=== PATIENT | male | born 2005 | race Caucasian/White ===

== ENCOUNTER 2024-01-31 11:00 | Outpatient (RCR) | payer OTHER, SELFPAY | END 2024-03-24 14:26 | disposition home or self-care (01) | LOC: HO.PT 11:00 | PROVIDERS: PCP Nurse Practitioner Family; Visit Provider Nurse Practitioner Family | DX: M25.561 Pain in right knee (principal) | CPT/HCPCS: 97110; 97161; 97530 ==

== ENCOUNTER 2024-10-30 10:30 | Emergency (ER) | payer OTHER, SELFPAY ==
[2024-10-30] VITALS (10 sets, daily range): BP systolic 124–153; BP diastolic 66–86; PULSE 60–105; RESP 14–18; TEMP 36.2–36.9; O2SAT 96–100; BMI 49.3; BMI 22.1
--- NOTE | ~2024-10-30 | CT_ITS ---
EXAMINATION: CT ABDOMEN AND PELVIS WITH CONTRAST CLINICAL INFORMATION: Right lower quadrant abdominal pain. COMPARISON: None available. TECHNIQUE: Multidetector volumetric images were obtained from the superior aspect of the liver through the pubic symphysis following administration 85 mL of Omnipaque 350 intravenous contrast. Sagittal and coronal reformatted images were obtained on the technologist's workstation. Oral contrast: No This CT examination was performed using dose optimization techniques as appropriate, variously including the following: *Automated exposure control *Adjustment of mA and/or kV according to patient size (this includes techniques or standardized protocols for targeted exams where dose is matched to indication/reason for exam; i.e. extremities or head) *Use of iterative reconstruction technique. DLP: 439 mGy centimeter. FINDINGS: LUNG BASES: No acute airspace disease. LIVER, GALLBLADDER, AND BILIARY TREE: Liver is normal in size morphology and enhancement pattern. No focal lesion. No pericholecystic fluid collection or gallbladder wall thickening. No intrahepatic or extrahepatic biliary ductal dilatation. PANCREAS: No focal lesion. No main pancreatic ductal dilatation. No peripancreatic fluid collection. SPLEEN: Normal size. No focal lesion. ADRENAL GLANDS: No nodular lesion. KIDNEYS AND URETERS: No hydronephrosis. No nephrolithiasis. No gross renal mass. Normal enhancement pattern of the renal parenchyma. BLADDER: Fluid-filled. GASTROINTESTINAL TRACT: The appendix tip measures 11 mm in maximum diameter with mild periappendiceal edema pattern. There is mucosal thickening. Few prominent the lymph nodes in the mesocecum. Abundant stool, large intestine. No intestinal obstruction pattern. No pneumoperitoneum. No pneumatosis intestinalis. Terminal ileum appears normal. ABDOMINAL WALL: No gross umbilical hernia. LYMPH NODES: Prominent lymph nodes in the mesocecum. VASCULAR: No aneurysm or dissection abdominal aorta. PELVIC VISCERA: Normal size. OSSEOUS STRUCTURES: No acute fracture or listhesis. CT/CT abdomen pelvis w IV con IMPRESSION: Concerning early acute nonruptured appendicitis in the correct clinical settings. Fleischner guidelines were followed. Electronically signed by: Luis Cedeno MD 10/30/2024 03:45 PM EDT
--- NOTE | 2024-10-30 11:20 | ED.ABDPAIN ---
HPI - Abdominal Pain General Chief Complaint: Abdominal Pain Stated Complaint: Abd pain, sent from urgent care Time Seen by Provider: 10/30/24 12:41 Source: patient Mode of arrival: ambulatory Limitations: no limitations History of Present Illness ED Provider: HPI narrative: 19-year-old male presenting abdominal cramping started earlier today, no nausea or vomiting or diarrhea, fairly generalized more so to the lower quadrants no dysuria no hematuria. Never had this before has had no prior surgeries otherwise healthy. Related Data Allergies Allergy/AdvReac Type Severity Reaction Status Date / Time No Known Allergies Allergy Verified 10/30/24 11:21 Review of Systems Constitutional: Reports as per HPI [facility] Social History Social History Advance Directives: No Advance Directives Information Provided: Yes Physical Exam ED Vital Signs: Vital Signs - 24 hr 10/30/24 11:19 10/30/24 14:23 Temperature 98.5 F 97.6 F Pulse Rate 85 60 Respiratory Rate 16 14 Blood Pressure 138/73 128/66 Pulse Oximetry 100 Oxygen Delivery Method Room Air Room Air BMI result Body Mass Index 49.3 Const Other: Gen: ?Overall well-appearing patient HEENT: PERRLA, EOMI, MMM, Neck: Supple, no LAD CV: RRR, no obvious murmurs appreciated Resp: ?No wheezing rales rhonchi no stridor moving air well Abd: ?Bowel sounds are present, suprapubic and right lower quadrant tenderness no rebound no rigidity, deferred MSK: FROM, strength 5/5 all extremities Skin: Warm, dry, intact, Neuro: ?Alert and oriented x3, moving upper and lower extremities symmetrically, no obvious facial asymmetry noted Course Course Course Narrative: This is an RME: Additional HPI, ROS, PE not included below will be deferred to primary provider. RME assessment and note performed by: Rosa Robert PA-C This is a 19-year-old male, with no known medical problems, who presents emergency department with complaints of abdominal pain which started this morning. No fevers, chills, congestion, cough, nausea, vomiting, diarrhea, or urinary symptoms. No history of similar symptoms in the past. Last moved his bowels this morning, reports that it was more firm. No sick contacts. Abdomen is soft, reportedly with diffuse tenderness throughout, no rebound or guarding. Plan: Labs, UA, further ER eval needed Medical Decision Making Medical Decision Making [facility] Narrative: Presenting with abdominal cramping, fairly nonspecific presentation on examination was found to have tenderness in the suprapubic and right lower quadrant, we will obtain imaging to evaluate for appendicitis other considerations listed as below, disposition to be determined 4PM consulting surgery for concern for acute appendicitis, family updated, patient updated. Differential Diagnosis Differential Diagnoses: The differential diagnosis associated with the presentation includes Appendicitis, constipation, cholecystitis, gastritis, diverticulitis, cystitis Admission/Observation Consideration of admission/observation: Escalation of care including admission/observation considered Lab Data [facility] Lab Attestation statement: I reviewed the patient's lab results. 10/30/24 11:44 10/30/24 11:44 Labs: Lab Results 10/30/24 Range/Units 11:44 WBC 12.7 H (4.8-10.8) X10*3/uL RBC 5.07 (4.60-5.80) X10*6/uL Hgb 14.9 (14.0-18.0) g/dl Hct 43.1 (42.0-52.0) % MCV 85.0 (80.0-98.0) fL MCH 29.4 (27.0-33.0) pg MCHC 34.6 (31.0-36.0) g/dl RDW 12.4 (11.0-16.0) % Plt Count 291 (160-400) X10*3/uL MPV 9.4 (9.4-12.4) fL Immature Gran % (Auto) 0.4 (0.0-0.4) % Neut % (Auto) 81.7 H (45-73) % Lymph % (Auto) 10.7 L (20-40) % [place] % (Auto) 6.3 (2-11) % Eos % (Auto) 0.6 (0-4) % Baso % (Auto) 0.3 (0-2) % Lymph # (Auto) 1.4 (1.2-4.9) X10*3/uL [place] # (Auto) 0.8 (0.1-1.2) X10*3/uL Eos # (Auto) 0.1 (0.0-0.4) X10*3/uL Baso # (Auto) 0.0 (0.0-0.2) X10*3/uL Abs Immat Gran (auto) 0.05 H (0.00-0.03) X10*3/uL Absolute Neuts (auto) 10.4 H (2.0-8.3) x10*3/uL Absolute Nucleated RBC 0.000 (0.0-0.012) X10*3/uL Nucleated RBC % (auto) 0.0 (0.0-0.2) /100WBC Sodium 140 (135-145) mmol/L Potassium 4.4 (3.3-5.1) mmol/L Chloride 106 (96-108) mmol/L Carbon Dioxide 28 (22-29) mmol/L Anion Gap 10 L (12-20) BUN 9 (9-16) mg/dL Creatinine 0.87 (0.5-1.4) mg/dL Estim Creat Clear Calc 215.6 Estimated GFR > 60 Random Glucose 96 (60-115) mg/dL Calcium 9.7 (8.4-10.2) mg/dL Magnesium 2.1 (1.6-2.6) mg/dL Total Bilirubin 0.6 (0.0-1.0) mg/dL Direct Bilirubin 0.2 (0.0-0.5) mg/dL AST 23 (5-37) U/L ALT 21 (0-40) U/L Alkaline Phosphatase 87 (39-117) U/L Total Protein 7.2 (6.5-8.0) g/dL Albumin 4.6 (3.5-5.0) g/dL Lipase 17 (8-78) U/L Influenza Type A (PCR) NEGATIVE (Negative) Influenza Type B (PCR) NEGATIVE (Negative) RSV RNA Qual (PCR) NEGATIVE (Negative) SARS-CoV-2 RNA (RT-PCR) NEGATIVE (Negative) Radiology Impression Discussion of test interpretation with radiology: I have reviewed the radiologist's reading. Radiologist Impression: CT/CT abdomen pelvis w IV con IMPRESSION: Concerning early acute nonruptured appendicitis in the correct clinical settings. Medications Administered Discontinued Medications Generic Name Dose Route Start Last Admin Trade Name Freq PRN Reason Stop Dose Admin Iohexol 100 ml 10/30/24 15:11 10/30/24 15:11 Iohexol 350 Mg/Ml 100 Ml Infus..Btl IV 10/30/24 15:12 85 ml ONCE ONE Administration Ketorolac Tromethamine 15 mg 10/30/24 12:43 10/30/24 14:10 Ketorolac Tromethamine 15 Mg/Ml Vial IVPUSH 10/30/24 12:44 15 mg ONCE ONE Administration Discharge Plan Discharge Clinical Impression: Acute appendicitis Patient Disposition: Admitted As Inpatient Print Language: [place]
[2024-10-30 11:58] LABS: MANUAL DIFF FLAG NO
[2024-10-30 12:00] LABS: Basophils Percent Auto 0.3 % (0-2); Eosinophils Absolute Auto 0.1 X10*3/uL (0.0-0.4); Eosinophils Percent Auto 0.6 % (0-4); Hematocrit 43.1 % (42.0-52.0); Hemoglobin 14.9 g/dl (14.0-18.0); Imm Gran Abs Auto 0.05 X10*3/uL (0.00-0.03); Imm Gran Pct Auto 0.4 % (0.0-0.4); Lymphocytes Absolute Auto 1.4 X10*3/uL (1.2-4.9); Lymphocytes Percent Auto 10.7 % (20-40); Mean Corpuscular HGB Conc 34.6 g/dl (31.0-36.0); Mean Corpuscular Hemoglobin 29.4 pg (27.0-33.0); Mean Platelet Volume 9.4 fL (9.4-12.4); Monocytes Absolute Auto 0.8 X10*3/uL (0.1-1.2); Monocytes Percent Auto 6.3 % (2-11); Neutrophils Absolute Auto 10.4 x10*3/uL (2.0-8.3); Neutrophils Percent Auto 81.7 % (45-73); Platelet Count 291 X10*3/uL (160-400); Red Blood Count 5.07 X10*6/uL (4.60-5.80); Red Cell Distribution Width 12.4 % (11.0-16.0); White Blood Count 12.7 X10*3/uL (4.8-10.8)
[2024-10-30 12:20] LABS: Alanine Aminotransferase 21 U/L (0-40); Albumin Level 4.6 g/dL (3.5-5.0); Alkaline Phosphatase 87 U/L (39-117); Anion Gap 10 (12-20); Aspartate Amino Transferase 23 U/L (5-37); Bilirubin Direct 0.2 mg/dL (0.0-0.5); Bilirubin Total 0.6 mg/dL (0.0-1.0); Blood Urea Nitrogen 9 mg/dL (9-16); Calcium 9.7 mg/dL (8.4-10.2); Carbon Dioxide 28 mmol/L (22-29); Chloride 106 mmol/L (96-108); Creatinine Clr Calc Pharmacy 215.6; Estimated Glomerular Filt Rate > 60; Glucose Random 96 mg/dL (60-115); Lipase 17 U/L (8-78); Magnesium 2.1 mg/dL (1.6-2.6); Potassium 4.4 mmol/L (3.3-5.1); Sodium 140 mmol/L (135-145); Total Protein 7.2 g/dL (6.5-8.0)
[2024-10-30 12:37] LABS: Influenza A PCR NEGATIVE (Negative); Influenza B PCR NEGATIVE (Negative); Resp Syncy Virus RNA Qual PCR NEGATIVE (Negative); SARS COV2 PCR INHOUSE NEGATIVE (Negative)
--- OUTSIDE RECORDS SUMMARY | 2024-10-30 13:16 | XMS_ITS | Encounter Summary ---
Author Organization [facility] Address [address] [place] [id number] Phone Care Team Providers Care Irrigation System Installer Name Role Phone Unruly Solares MD Primary Care Provider [phone] Encounter Details Date Type Department Care Team (Late st Contact Info) Description 06/25/2016 Documentation [facility] [place] [facility] [address] [place], [place] [id number] Family Medicine, Physician [address] [place], [place] [phone] Social History Tobacco Use Types Packs/Day Years Used Date Smoking Tobacco: Never Assessed Sex and Gender Information Value Date Recorded Sex Assigned at Male 03/10/2020 9:26 AM EDT Legal Sex Male 5:13 PM EDT Gender Identity Male 03/10/2020 9:26 AM EDT Sexual Orientation Straight 03/10/2020 9: 26 AM EDT documented as of this encounter Plan of Treatment Upcoming Encounters Date Type Department Care Team (Late st Contact Info) Description 11/16/2024 10:30 AM EDT Office Visit [facility] [address] [place] [address] Unruly Solares MD [address] [place] [address] documented as of this encounter Visit Diagnoses Not on filedocumented in this encounter Care Teams Irrigation System Installer Relationship Specialty Start Date End Date Unruly Solares MD [address] [place] [address] PCP - General Pediatrics 09/01/24 documented as of this encounter
[2024-10-30] MEDS: Ketorolac Tromethamine 15 MG/ML VIAL IVPUSH (14:10)
[2024-10-30] MEDS: iohexoL 350 MG/ML 100 ML INFUS..BTL IV (15:11)
[2024-10-30] MEDS: cefTRIAXone sodium 1 GM VIAL IVPUSH (16:47)
[2024-10-30 17:39] LABS: Appearance Urine Clear; Color Urine Yellow; Glucose Urine UA Negative (Negative); Leukocyte Esterase Urine Negative (Negative); Nitrite Urine Negative (Negative); PH 7.5 (5.0-9.0); Specific Gravity - Urine >= 1.030 (1.005-1.025); Urine Blood Negative (Negative); Urine Ketones Negative (Negative); Urine Protein Negative (Neg-Trace)
--- NOTE | 2024-10-30 17:53 | PHA.MEDREC ---
Addendum entered by Jose Vigil [facility] 10/30/24 18:21: med rec checked by [facility] Original Note: Pharmacy Consult ? Medication Reconciliation Pharmacy has completed the medication reconciliation. Patient states he only takes Diclofenac sod 75 mg PRN.
--- NOTE | 2024-10-30 17:59 | HO.ANESPROP2 ---
HPI - Anesthesia Eval Consult details Narrative: Acute appendicitis PMFSH Active Problems Active Problems: All Active Problems Acute appendicitis (Acute) Family History Family history of problems with anesthesia: No Surgical History History of Problems with Anesthesia: No Social History Social History Advance Directives: No Advance Directives Information Provided: Yes Meds Allergies Allergy/AdvReac Type Severity Reaction Status Date / Time No Known Allergies Allergy Verified 10/30/24 11:21 Home Medications ?Medication ?Instructions ?Recorded ?Confirmed ?Last Taken ?Type diclofenac sodium 75 mg 75 mg PO BID PRN Pain 10/30/24 10/30/24 Unknown History tablet,delayed release Exam Height,Weight and Vital Signs: Height 6 ft Weight 165 kg Last Vital Signs Temp 97.3 F 10/30/24 17:39 Pulse 70 10/30/24 17:39 Resp 16 10/30/24 17:39 BP 135/76 10/30/24 17:39 Pulse Ox 100 10/30/24 17:39 O2 Del Method Room Air 10/30/24 14:23 Pertinent Lab Results Pertinent Lab Results: Laboratory Tests 10/30/24 10/30/24 11:44 17:27 WBC 12.7 H RBC 5.07 Hgb 14.9 Hct 43.1 MCV 85.0 MCH 29.4 MCHC 34.6 RDW 12.4 Plt Count 291 MPV 9.4 Immature Gran % (Auto) 0.4 Neut % (Auto) 81.7 H Lymph % (Auto) 10.7 L [place] % (Auto) 6.3 Eos % (Auto) 0.6 Baso % (Auto) 0.3 Lymph # (Auto) 1.4 [place] # (Auto) 0.8 Eos # (Auto) 0.1 Baso # (Auto) 0.0 Abs Immat Gran (auto) 0.05 H Absolute Neuts (auto) 10.4 H Absolute Nucleated RBC 0.000 Nucleated RBC % (auto) 0.0 Sodium 140 Potassium 4.4 Chloride 106 Carbon Dioxide 28 Anion Gap 10 L BUN 9 Creatinine 0.87 Estim Creat Clear Calc 215.6 Estimated GFR > 60 Random Glucose 96 Calcium 9.7 Magnesium 2.1 Total Bilirubin 0.6 Direct Bilirubin 0.2 AST 23 ALT 21 Alkaline Phosphatase 87 Total Protein 7.2 Albumin 4.6 Lipase 17 Urine Color Yellow Urine Appearance Clear Urine pH 7.5 Ur Specific [place] >= 1.030 H Urine Protein Negative Urine Glucose (UA) Negative Urine Ketones Negative Urine Blood Negative Urine Nitrite Negative Ur Leukocyte Esterase Negative Influenza Type A (PCR) NEGATIVE Influenza Type B (PCR) NEGATIVE RSV RNA Qual (PCR) NEGATIVE SARS-CoV-2 RNA (RT-PCR) NEGATIVE Airway Mallampati Class: II TM Dist: >3cm Neck ROM: Full Loose/Missing/Broken Teeth: No Heart: RRR Lungs: CTA Assessment and Plan Assessment Anesthesia Assessment: Anesthesia Plan Discussed and Chart Reviewed Final Anesthetic Review Family History of Problems with Anesthesia: No History of Problems with Anesthesia: No NPO: Yes ASA Class: I and Emergency Final Preanesthetic Review: No Changes in Pt Med Stat, Meds/Allgs Chart Reviewed, Consent Obtained/Reviewed and Anes Risks/Benef Reviewed Patient Risk: Low Procedure Risk: Intermediate Anesthetic Plan Anesthetic Plan: GA Disposition: Standard PACU
--- NOTE | 2024-10-30 18:00 | PM.HPGS ---
History of Present Illness History of Present Illness Date of Service: 10/30/24 Chief complaint: Abd pain, sent from urgent care Narrative: Reese Crandall is a 19 year old male who has had a 16 hour history periumbilical pain that started yesterday and by today and overnight started moving towards the right lower quadrant area. He has never had pain like this before. He comes in now and workup in the ER reveals a slightly elevated white count and the CT scan showing findings consistent with early appendicitis. Patient is generally healthy does not smoke does not drink no drug use. Rest of review of systems are within normal limits Review of Systems Review of Systems: Yes all other systems are reviewed and are negative PMFSH Social History Social History Advance Directives: No Advance Directives Information Provided: Yes Meds Allergies Allergy/AdvReac Type Severity Reaction Status Date / Time No Known Allergies Allergy Verified 10/30/24 11:21 Home Medications ?Medication ?Instructions ?Recorded ?Confirmed ?Last Taken ?Type diclofenac sodium 75 mg 75 mg PO BID PRN Pain 10/30/24 10/30/24 Unknown History tablet,delayed release Physical Exam Vital Signs: Vital Signs: Last Vital Signs Temp 97.3 F 10/30/24 17:39 Pulse 70 10/30/24 17:39 Resp 16 10/30/24 17:39 BP 135/76 10/30/24 17:39 Pulse Ox 100 10/30/24 17:39 O2 Del Method Room Air 10/30/24 14:23 BMI result Body Mass Index 49.3 Const: General: cooperative, healthy appearing, comfortable and no acute distress HEENT: Head: Yes normal to inspection Resp: Effort & Inspection: normal respiratory effort Auscultation: clear to auscultation bilaterally Cardio: Rate: regular rate Rhythm: regular rhythm GI: Other: Abdomen is soft nondistended nontender other than the right lower quadrant where there some mild tenderness guarding no peritoneal signs Results Results Labs: Short CBC 10/30/24 Range/Units 11:44 WBC 12.7 H (4.8-10.8) X10*3/uL Hgb 14.9 (14.0-18.0) g/dl Hct 43.1 (42.0-52.0) % Plt Count 291 (160-400) X10*3/uL BMP 10/30/24 11:44 Sodium 140 Potassium 4.4 Chloride 106 Carbon Dioxide 28 BUN 9 Creatinine 0.87 Calcium 9.7 Liver Function 10/30/24 Range/Units 11:44 Total Bilirubin 0.6 (0.0-1.0) mg/dL Direct Bilirubin 0.2 (0.0-0.5) mg/dL AST 23 (5-37) U/L ALT 21 (0-40) U/L Alkaline Phosphatase 87 (39-117) U/L Albumin 4.6 (3.5-5.0) g/dL Urine 10/30/24 Range/Units 17:27 Urine Color Yellow Urine Appearance Clear Urine pH 7.5 (5.0-9.0) Ur Specific [place] >= 1.030 H (1.005-1.025) Urine Protein Negative (Neg-Trace) mg/dL Urine Glucose (UA) Negative (Negative) mg/dL Abdomen CT scan report/results: report reviewed and image reviewed CT scan - pelvis: report reviewed and image reviewed Additional studies: Patient: Reese Minor MR#: [id number] : 2005 Acct:[id number] Age/Sex: 19 / M ADM Date: 10/30/24 Loc: HO.ED Attending Dr: Ordering Physician: Tre Abrams DO Date of Service: 10/30/24 Procedure(s): CT abdomen pelvis w IV con Accession Number(s): [id number] cc: Physician,Unknown ; Tre Abrams DO~ Report Number: [id number]: Total DLP = 439.00 mGy-cm EXAMINATION: CT ABDOMEN AND PELVIS WITH CONTRAST CLINICAL INFORMATION: Right lower quadrant abdominal pain. COMPARISON: None available. TECHNIQUE: Multidetector volumetric images were obtained from the superior aspect of the liver through the pubic symphysis following administration 85 mL of Omnipaque 350 intravenous contrast. Sagittal and coronal reformatted images were obtained on the technologist's workstation. Oral contrast: No This CT examination was performed using dose optimization techniques as appropriate, variously including the following: *Automated exposure control *Adjustment of mA and/or kV according to patient size (this includes techniques or standardized protocols for targeted exams where dose is matched to indication/reason for exam; i.e. extremities or head) *Use of iterative reconstruction technique. DLP: 439 mGy centimeter. FINDINGS: LUNG BASES: No acute airspace disease. LIVER, GALLBLADDER, AND BILIARY TREE: Liver is normal in size morphology and enhancement pattern. No focal lesion. No pericholecystic fluid collection or gallbladder wall thickening. No intrahepatic or extrahepatic biliary ductal dilatation. PANCREAS: No focal lesion. No main pancreatic ductal dilatation. No peripancreatic fluid collection. SPLEEN: Normal size. No focal lesion. ADRENAL GLANDS: No nodular lesion. KIDNEYS AND URETERS: No hydronephrosis. No nephrolithiasis. No gross renal mass. Normal enhancement pattern of the renal parenchyma. BLADDER: Fluid-filled. GASTROINTESTINAL TRACT: The appendix tip measures 11 mm in maximum diameter with mild periappendiceal edema pattern. There is mucosal thickening. Few prominent the lymph nodes in the mesocecum. Abundant stool, large intestine. No intestinal obstruction pattern. No pneumoperitoneum. No pneumatosis intestinalis. Terminal ileum appears normal. ABDOMINAL WALL: No gross umbilical hernia. LYMPH NODES: Prominent lymph nodes in the mesocecum. VASCULAR: No aneurysm or dissection abdominal aorta. PELVIC VISCERA: Normal size. OSSEOUS STRUCTURES: No acute fracture or listhesis. CT/CT abdomen pelvis w IV con IMPRESSION: Concerning early acute nonruptured appendicitis in the correct clinical settings. Fleischner guidelines were followed. Electronically signed by: Luis Cedeno MD 10/30/2024 03:45 PM EDT Dictated By: Luis Gómez MD Signed By: <Electronically signed by Luis Le MD in OV> 10/30/24 1545 DD/ 1359 TD/TT: 10/30/24 1535 Dashboard Developer: Assessment and Plan (1) Morbid obesity: Status: Inactive (2) Acute appendicitis: Qualifiers: Acute appendicitis type: with localized peritonitis Appendicitis abscess presence: without abscess Appendicitis gangrene presence: without gangrene Appendicitis perforation presence: without perforation Qualified Code(s): K35.30 - Acute appendicitis with localized peritonitis, without perforation or gangrene Status: Acute Plan 19-year-old male with right lower abdominal pain tenderness slightly elevated white count CT scan consistent with findings of early appendicitis. Plan is to admit IV antibiotics carry out laparoscopic appendectomy and most likely be discharged home. Risks and benefits were discussed with the patient including but not limited to bleeding infection bowel injury and despite this he wishes to proceed Quality Stroke Does the patient have a stroke diagnosis?: No VTE Prior VTE?: No VTE Risk Level:: Surgical - low VTE Device Contraindication: Treatment Not Indicated VTE Drug Contraindication: Treatment Not Indicated Procedures Date of Service Date of Service: 10/30/24
--- NOTE | 2024-10-30 19:44 | P.DS_ITS ---
DS: Providers Provider Date of Service: 10/30/24 Date of discharge: 10/30/24 Primary care physician: Unknown Physician Admitting clinician: Terri Bui Attending physician on discharge: Terri Bui DS: Diagnosis Discharge Diagnosis (1) Morbid obesity: Status: Inactive (2) Acute appendicitis: Start date: 10/30/24 Status: Acute DS: Summary Hospital Course Hospital Course: pt underwent lap appy after presenting to the ER with abdo pain and w.u revealed acute appendicitis early no complications or issues will be dc home from pacu Status at Discharge Cognitive/behavioral status at discharge: good Functional status at discharge: independent ambulation Overall status at discharge: patient is progressing back to baseline Time Attestation Total time managing care of this patient today: 20 mintues. Discharge Coordination Time (in mins): 20 min Quality: Safe Use of Opioids Does Pt have an Active Cancer Diagnosis on the Problem List?: No Quality: Stroke Does the patient have a stroke diagnosis?: No Reason for No Anti-thrombotic at DC: Not indicated Reason for No Anticoagulant at DC: Not indicated Reason Not Initiating IV-Tpa: Not indicated Reason for No Anti-thrombotic by Day Two: Not indicated Physical Exam Vital Signs: Vital Signs: Last Vital Signs Temp 97.3 F 10/30/24 17:39 Pulse 70 10/30/24 17:39 Resp 16 10/30/24 17:39 BP 135/76 10/30/24 17:39 Pulse Ox 100 10/30/24 17:39 O2 Del Method Room Air 10/30/24 14:23 BMI result Body Mass Index 22.1 GI: Other: abdominal pain at incisions DS: Data Data Completed and Pending Pending studies at discharge: Pending at discharge 10/30/24 19:23 Surgical [PTH] Routine Labs on day of discharge: Laboratory Results - last 24 hr 10/30/24 10/30/24 11:44 17:27 WBC 12.7 H RBC 5.07 Hgb 14.9 Hct 43.1 MCV 85.0 MCH 29.4 MCHC 34.6 RDW 12.4 Plt Count 291 MPV 9.4 Immature Gran % (Auto) 0.4 Neut % (Auto) 81.7 H Lymph % (Auto) 10.7 L [place] % (Auto) 6.3 Eos % (Auto) 0.6 Baso % (Auto) 0.3 Lymph # (Auto) 1.4 [place] # (Auto) 0.8 Eos # (Auto) 0.1 Baso # (Auto) 0.0 Abs Immat Gran (auto) 0.05 H Absolute Neuts (auto) 10.4 H Absolute Nucleated RBC 0.000 Nucleated RBC % (auto) 0.0 Sodium 140 Potassium 4.4 Chloride 106 Carbon Dioxide 28 Anion Gap 10 L BUN 9 Creatinine 0.87 Estim Creat Clear Calc 215.6 Estimated GFR > 60 Random Glucose 96 Calcium 9.7 Magnesium 2.1 Total Bilirubin 0.6 Direct Bilirubin 0.2 AST 23 ALT 21 Alkaline Phosphatase 87 Total Protein 7.2 Albumin 4.6 Lipase 17 Urine Color Yellow Urine Appearance Clear Urine pH 7.5 Ur Specific [place] >= 1.030 H Urine Protein Negative Urine Glucose (UA) Negative Urine Ketones Negative Urine Blood Negative Urine Nitrite Negative Ur Leukocyte Esterase Negative Influenza Type A (PCR) NEGATIVE Influenza Type B (PCR) NEGATIVE RSV RNA Qual (PCR) NEGATIVE SARS-CoV-2 RNA (RT-PCR) NEGATIVE Imaging CT scan - pelvis: Radiologist's impression: ITS Impressions Abdomen/Pelvis CT 10/30/24 13:59 IMPRESSION: Concerning early acute nonruptured appendicitis in the correct clinical settings. Fleischner guidelines were followed. Electronically signed by: Luis Cedeno MD 10/30/2024 03:45 PM EDT Discharge Plan Discharge Clinical Impression: Acute appendicitis Patient Disposition: Home, Self-Care Prescriptions: New oxycodone 5 mg tablet 5 mg PO Q6H PRN (Reason: pain) Qty: 10 0RF Rx Instructions: Partial Fill upon patient request. No Action diclofenac sodium 75 mg tablet,delayed release (DR/EC) 75 mg PO BID PRN (Reason: Pain) Referrals: Physician,Unknown J [Primary Care Provider] - Interventions: Admission Worksheet (ED) Last Done: 10/30/24 17:56 Print Language: Polish
[2024-10-30] MEDS: Ketorolac Tromethamine 30 MG/ML VIAL IVPUSH (19:52)
[2024-10-30] MEDS: Acetaminophen 1,000 MG/100 ML PIGGYBACK 400 MG IV (19:52)
--- NOTE | 2024-10-30 20:05 | W.PM.OPN ---
Operative Note Operative Note Date of Service: 10/30/24 Narrative: Preop diagnosis--acute appendicitis Postop diagnosis--acute appendicitis Procedure--[facility]aroscopic [facility] Anesthesia--general endotracheal tube anesthesia Patient is a 19-year-old male who comes in overnight history of abdominal pain periumbilical now radiating to the right lower quadrant area mild guarding slightly elevated white count to 12,[address] scan showing findings consistent with early appendicitis Intraop findings--early appendicitis with the short appendix being a little thickened stiff mild inflammatory changes of the tip. Small bowel was run no other intraoperative findings of concern were noted Procedure-- Patient was brought to the operative room under Anesthesia guidance intubated. He had compression stockings placed before induction received preoperative antibiotics his abdomen was prepped and draped in standard surgical fashion. Infraumbilical incision was created after numbing up the area with 0.25% Marcaine lidocaine epinephrine mixture. The abdominal wall fascia was grasped with Darci's and transected 0 Vicryl pursestring suture placed and eventually Gaines trocar introduced and secured. Pneumoperitoneum was established with a 15 mmHg pressure. Two 5 mm ports were then placed under direct visualization using local 1 in the suprapubic area and 1 in the left lower quadrant. The appendix was identified right in the right lower quadrant area on the surface of the small bowel it was grasped with a grasper and using the harmonic the mesentery was taken down at the base. The 45 purple load endoscopic TAY was used to fire across the base of the cecum appendix area. The appendix was pulled into the port and then removed from the infraumbilical port site. Pneumoperitoneum was reestablished in the area examined and it looked fine. The small bowel was then run for several feet just to ensure that there was no Meckel's diverticulum or anything else of concern. The rest of the pelvic structures look fine. At the end of the case all sponge instrument needle counts were correct estimated blood loss was minimal specimens sent was the appendix. The 0 Vicryl pursestring suture was closed and forearm for Polysorb was used to close the skin edges with Steri-Strips and gauze and Tegaderm dressings. The patient was extubated returned stable to recovery
--- NOTE | 2024-10-31 07:58 | MHC.CM.ED ---
Patient d/c'd home before being seen by case management. No services recommended at d/c.
== END 2024-10-30 18:00 | disposition still patient (30) ==
PROVIDERS: Physician Assistant Medical; Surgery; Emergency Provider Emergency Medicine
PROC: 0DTJ4ZZ Resection of Appendix, Percutaneous Endoscopic Approach (ICD-10-PCS; CPT 44970; principal; 2024-10-30 17:45)
DX: K35.30 Acute appendicitis with localized peritonitis, without perforation or gangrene (principal); R10.31 Right lower quadrant pain; E66.01 Morbid (severe) obesity due to excess calories; Z68.42 Body mass index [BMI] 45.0-49.9, adult; Z03.818 Encounter for observation for suspected exposure to other biological agents ruled out
CPT/HCPCS: 44970; 0241U; 74177; 80048; 80076; 81003; 83690; 83735; 85025; 88304; 96374; 99285; J0131; J0665; J0696; J1100; J1885; J2003; J2405; J2704; J3010; Q9967

== ENCOUNTER → 2024-10-30 12:43 | Outpatient (BNV) | payer OTHER, SELFPAY | PROVIDERS: Emergency Provider Emergency Medicine; Visit Provider Radiology Diagnostic Radiology | DX: R10.31 Right lower quadrant pain (principal) | CPT/HCPCS: 74177 ==

== ENCOUNTER → 2024-10-30 12:48 | Outpatient (BNV) | payer OTHER, SELFPAY | PROVIDERS: Emergency Provider Emergency Medicine; Visit Provider Surgery | DX: K35.30 Acute appendicitis with localized peritonitis, without perforation or gangrene (principal); E66.01 Morbid (severe) obesity due to excess calories | CPT/HCPCS: 44970; 99284; 99499 ==

== ENCOUNTER 2024-11-09 11:22 | Outpatient (AMB) | payer OTHER, SELFPAY ==
--- NOTE | 2024-11-09 11:27 | A.OFFVIS_ITS ---
Vital Signs 11/09/24 11:38 Height 6 ft Weight 165 lb 2 oz BMI 22.4 BP 132/80 Blood Pressure Location Lt brachial Position Sitting Pulse 76 Intake Visit Reasons: s/p appendectomy 10/30 Intake Note: Patient is seen in office for post op assessment post laparoscopic appendectomy Pt c/o: denies any concerns surgery:10/30/24 Surgeon--Hao Superintendent Stevedoring Required: No Accompanied by: Self / Same As Patient Allergies No Known Allergies Allergy (Verified 11/09/24 11:38) HPI HPI s/p appendectomy 10/30: Details: Patient doing well, has no concerns. Denies pain, no longer taking pain medications. States he is returning to work today at [employer], he states that there is really any heavy lifting involved and feels comfortable doing this. Appetite and bowel function are at baseline. Denies fever, chills, discharge from incision sites, redness surrounding incision sites [facility] Surgical History (Updated 11/09/24 @ 11:42 by Homer Blair PA-C) History of laparoscopic appendectomy (10/30/24) Social History Patient Tobacco Use Status: Never used Tobacco Review of Systems Const All systems reviewed & are unremarkable except as noted in HPI and below Physical Exam Vital Signs: Last Vital Signs Pulse 76 11/09/24 11:38 BP 132/80 11/09/24 11:38 BMI result Body Mass Index 22.4 Const General: healthy appearing, comfortable and no acute distress Orientation/consciousness: patient oriented x3 Resp Effort & Inspection: normal respiratory effort and able to speak in complete sentences GI Other: Laparoscopic port sites appear intact and clean. No surrounding erythema, nontender. Inspection: No distended Palpation (GI): Soft to palpation, not firm, nontender, no guarding and not rigid Neuro General: patient oriented x3 Assessment & Plan Assessment & Plan (1) S/P laparoscopic appendectomy: Code(s): Z90.49 - Acquired absence of other specified parts of digestive tract Category: Medical Plan 19-year-old male status post laparoscopic appendectomy on 10/30/2024 presenting for routine follow-up. Patient is doing well, no longer experiencing pain. Appetite and bowel function are at baseline. Patient's abdominal exam is soft and benign. Incision sites appear to be healing well no current signs of infection patient will be returning to work today we will maintain activity restrictions at no heavy lifting greater than 20 lb until his next follow-up appointment. Patient will return in about 2 weeks for follow-up but can return sooner with any concerns prior Coding Level of Care Code Global (40835) Diagnoses S/P laparoscopic appendectomy Z90.49
[2024-11-09 11:38] VITALS: BP 132/80; PULSE 76; BMI 22.4
--- OUTSIDE RECORDS SUMMARY | 2024-11-09 13:02 | XMS_ITS | Encounter Summary ---
Author Organization [facility] Address [address] [place] [address] Phone Care Team Providers Care Lace Burn Out Tender Name Role Phone Unruly Solares MD Primary Care Provider [phone] Encounter Details Date Type Department Care Team (Late st Contact Info) Description 06/25/2016 Documentation [facility] [place] Family Medicine [address] [place], [place] [id number] Family Medicine, Physician [address] [place], [place] [id number] Social History Tobacco Use Types Packs/Day Years [...] Description 11/16/2024 10:30 AM EDT Office Visit [facility] [address] [place] [address] Unruly Solares MD [address] [place] [address] documented as of this encounter Visit Diagnoses Not on filedocumented in this encounter Care Teams Lace Burn Out Tender Relationship Specialty Start Date End Date Unruly Solares MD [address] [place] [address] PCP - General Pediatrics 09/01/24 documented as of this encounter
== END 2024-11-09 11:38 | disposition home or self-care (01) ==
LOC: HO.HGS 11:23
DX: Z90.49 Acquired absence of other specified parts of digestive tract (principal)
CPT/HCPCS: 99024

== ENCOUNTER 2024-11-23 10:55 | Outpatient (AMB) | payer OTHER, SELFPAY ==
[2024-11-23 11:09] VITALS: BP 122/60; BMI 22.5
--- NOTE | 2024-11-23 11:09 | A.OFFVIS_ITS ---
Vital Signs 11/23/24 11:09 Height 6 ft Weight 166 lb BMI 22.5 BP 122/60 Blood Pressure Location Lt brachial Position Sitting Intake Visit Reasons: 2wk s/p appendectomy 10/30 Intake Note: Pt states, I'm here for follow up from my appendectomy. no complaints Wrapper Selector Required: No Allergies No Known Allergies Allergy (Verified 11/23/24 11:10) Medication List - Last Reconciled 11/23/24 by Edgar Kumari RN diclofenac sodium 75 mg PO BID PRN HPI HPI 2wk s/p appendectomy 10/30: Details: Patient doing well, no concerns. Denies pain. Has plans to resume playing volleyball, has a couple tournaments at the end of November [facility] Surgical History History of laparoscopic appendectomy (10/30/24) Social History Patient Tobacco Use Status: Never used Tobacco Physical Exam Vital Signs: Last Vital Signs BP 122/60 11/23/24 11:09 BMI result Body Mass Index 22.5 Const General: healthy appearing, comfortable and no acute distress Orientation/consciousness: patient oriented x3 Resp Effort & Inspection: normal respiratory effort and able to speak in complete sentences GI Other: Laparoscopic incision sites healing well no surrounding erythema, nontender Inspection: No distended Palpation (GI): Soft to palpation, nontender, no guarding and not rigid Neuro General: patient oriented x3 Assessment & Plan Assessment & Plan (1) S/P laparoscopic appendectomy: Code(s): Z90.49 - Acquired absence of other specified parts of digestive tract Category: Surgical Plan 19-year-old male s/p laparoscopic appendectomy on 10/30/2024 presenting for 1 month postop visit. Patient doing well, no concerns at this time. Not experiencing any pain, appetite and bowel function remain at baseline. Abdomen exam is soft and benign incision sites appear to be healing well, no concern for infection at this time. We discussed returning to activity. Recommended that next week the patient can resume activity at half of his baseline. He can slowly advance from there to his baseline level activity without restrictions. Advised him to listen to his body, he is having any difficulty, he should slow as progression of returning to activity and follow-up. Otherwise patient no longer requiring follow-up, can return as needed for any future concerns. Coding Level of Care Code Global (19928) Diagnoses S/P laparoscopic appendectomy Z90.49
--- OUTSIDE RECORDS SUMMARY | 2024-11-23 11:53 | XMS_ITS | Encounter Summary ---
Author Organization [facility] Address [address] [place] [address] Phone Care Team Providers Care Medical Biller Name Role Phone Unruly Solares MD Primary Care Provider [phone] Encounter Details Date Type Department Care Team (Late st Contact Info) Description 06/25/2016 Documentation [facility] [place] Family Medicine [address] [place] [address] Family Medicine, Physician [address] [place], [place] [id number] Social History Tobacco Use Types Packs/Day Years Used Date Smoking Tobacco: Never Assessed Sex and Gender Information Value Date Recorded Sex Assigned at Male 03/10/2020 9:26 AM EDT Legal Sex Male 5:13 PM EDT Gender Identity Male 03/10/2020 9:26 AM EDT Sexual Orientation Straight 03/10/2020 9: 26 AM EDT documented as of this encounter Plan of Treatment Not on file documented as of this encounter Visit Diagnoses Not on filedocumented in this encounter Care Teams Medical Biller Relationship Specialty Start Date End Date Unruly Solares MD [address] [place] [address] NADEEM Marte [id number] PCP - General Pediatrics 09/01/24 documented as of this encounter
== END 2024-11-23 11:55 | disposition home or self-care (01) ==
LOC: HO.HGS 10:55
DX: Z90.49 Acquired absence of other specified parts of digestive tract (principal)
CPT/HCPCS: 99024